=== PATIENT | female | born 1965 | race African-American/Black ===

== ENCOUNTER 2017-12-13 17:44 | Emergency (ER) | payer SELFPAY ==
[2017-12-13 18:37] LABS: ADD MAN DIFF? NO
[2017-12-13 18:40] LABS: BASO # 0.1 x10^3/uL (0.0-0.2); BASO % 1 % (0-3); EOS # 0.1 x10^3/uL (0.0-0.7); EOS % 2 % (0-3); HEMATOCRIT 36.5 % (36.0-47.0); HEMOGLOBIN 12.1 g/dL (12.0-15.5); LYMPH % 24 % (24-48); MEAN CORPUSCULAR HEMOGLOBIN 32 pg (25-35); MEAN CORPUSCULAR HGB CONC 33 g/dL (31-37); MEAN CORPUSCULAR VOLUME 95 fL (79-100); MONO # 0.6 x10^3/uL (0.0-1.1); MONO % 7 % (0-9); NEUT # 5.5 x10^3uL (1.8-7.7); NEUT % 66 % (31-73); PLATELET COUNT 289 x10^3/uL (140-400); RED BLOOD COUNT 3.84 x10^6/uL (3.50-5.40); WHITE BLOOD COUNT 8.3 x10^3/uL (4.0-11.0)
[2017-12-13] MEDS: IV NORMAL SALINE 1000ML BAG 1,000 ML IV ×2 (18:41)
[2017-12-13] MEDS: ONDANSETRON PF 4 MG/2 ML VIAL. IV ×2 (18:43)
[2017-12-13] MEDS: KETOROLAC 30 MG/ML INJ. IV ×2 (18:44)
[2017-12-13] MEDS: HYDROmorphone 2 MG/ML VIAL IV ×4 (18:45→20:14)
[2017-12-13 18:53] LABS: ANION GAP 7 (6-14); BLOOD UREA NITROGEN 12 mg/dL (7-20); BUN/CREATININE RATIO 15 (6-20); CALCIUM 9.2 mg/dL (8.5-10.1); CARBON DIOXIDE 30 mmol/L (21-32); CHLORIDE 100 mmol/L (98-107); CREATININE 0.8 mg/dL (0.6-1.0); GFR 75.9; GLUCOSE 113 mg/dL (70-99); SODIUM 137 mmol/L (136-145)
[2017-12-13 19:00] LABS: ALBUMIN 3.5 g/dL (3.4-5.0); ALBUMIN/GLOBULIN RATIO 0.9 (1.0-1.7); ALK PHOS 99 U/L (46-116); ALT (SGPT) 14 U/L (14-59); AST (SGOT) 13 U/L (15-37); LIPASE 71 U/L (73-393); TOTAL BILIRUBIN 0.3 mg/dL (0.2-1.0); TOTAL PROTEIN 7.3 g/dL (6.4-8.2)
[2017-12-13] MEDS ORDERED: CONTRAST GIVEN MC ×2 (19:00)
[2017-12-13] MEDS: IOHEXOL 300 MG/ML 100ML VIAL. IV ×2 (19:20)
[2017-12-13] MEDS: diphenhydrAMINE 50 MG/ML VIAL IVP ×2 (19:31)
[2017-12-13] MEDS: CIPROFLOXACIN HCL 250 MG TABLET. PO ×2 (20:12)
[2017-12-13] MEDS: metroNIDAZOLE 500 MG TABLET PO ×2 (20:12)
[2017-12-13] MEDS: KETOROLAC 15 MG/ML VIAL. IV ×2 (20:15)
== END 2017-12-13 20:51 | disposition home or self-care (01) ==
LOC: ER 17:44
DX: R10.32 Left lower quadrant pain (principal); R11.2 Nausea with vomiting, unspecified; E66.01 Morbid (severe) obesity due to excess calories; Z90.710 Acquired absence of both cervix and uterus; Z68.41 Body mass index [BMI] 40.0-44.9, adult
CPT/HCPCS: 36415; 74177; 80053; 83690; 85025; 96361; 96374; 96375; 96376; 99285-25; J1170; J1200; J1885; J2405; J7030; Q9967